=== PATIENT | female | born 1950 | race Caucasian/White ===

== ENCOUNTER 2017-05-06 09:00 | Day surgery (SDC) | payer MEDICARE, BC ==
[~2017-05-06 09:00] MED LIST: Lactated Ringers 1,000 ML IV SCH
[2017-05-06] MEDS ORDERED: fentaNYL 100 MCG/2 ML SDV ONE (10:03)
[2017-05-06] MEDS ORDERED: Propofol 200 MG/20 ML SDV ONE (10:03)
[2017-05-06 10:55] VITALS: BP 115/64
--- NOTE | 2017-05-06 14:50 | OR ---
PREOPERATIVE DIAGNOSIS: History of previous colon cancer, which was carcinoma in situ, back in 1995. Last colonoscopy was 02/2011. The patient reports she does have history of hemorrhoids as well. POSTOPERATIVE DIAGNOSES: 1. A 5 mm polyp at 60 cm (right colon), removed with cold snare and then cautery to the base. 2. Redundant colon. 3. Mild hemorrhoids, not acutely inflamed. 4. Minimal scattered diverticulosis. PROCEDURE: Colonoscopy with polypectomy x1 using cold snare and then base cauterizing using the tip of the snare. ANESTHESIA: Monitored anesthesia care. BOWEL PREP: Good. DESCRIPTION OF PROCEDURE: Johana is a 66-year-old female who was brought to the endoscopy suite after discussing risks and benefits of the procedure. Informed consent was obtained for conscious sedation and colonoscopy with or without biopsy and/or polypectomy. We also discussed possibility of missed lesions. Pre-procedure exam was unremarkable. IV, oxygen, and monitors were placed. The patient was placed in the left lateral decubitus position. Sedation was administered and a digital rectal exam was performed and unremarkable except for some mild external hemorrhoidal skin tags, not acutely inflamed. Colonoscope was passed into the rectum and slowly advanced all the way to the cecum. The patient did have redundant colon, was somewhat tortuous. Cecum was viewed and photographed. The colonoscope was slowly withdrawn and the mucosa was closed observed in a direct circumferential manner. The ascending colon was remarkable for a 5 mm polyp at 60 cm from the anal verge. This was photographed and removed with cold snare. The base of this did bleed a little bit. The tip of the snare was used to cauterize the base. The transverse colon was unremarkable. The descending colon was unremarkable. The sigmoid colon was unremarkable. There was some minimal diffuse scattered diverticulosis. Retroflexion was performed. Rectal mucosa revealed some mild hemorrhoids, not acutely inflamed. Scope was removed. The patient tolerated the procedure well. The patient was monitored until that baseline status. Discharge instructions were reviewed and the patient was discharged in good condition. COMPLICATIONS: None. TOTAL TIME: 18 minutes. ESTIMATED BLOOD LOSS: Less than 1 mL. RECOMMENDATIONS/FOLLOWUP: We will await results of path report to determine ideal followup interval. I would like to kindly thank Dr. Gabo Pulliam for this referral. DMB: 05/06/2017 10:46:54 MODL: 05/06/2017 14:38:46 /[id number]
== END 2017-05-06 12:00 | disposition home or self-care (01) ==
LOC: VM.SDS 09:00
PROVIDERS: ATTEND Family Medicine
DX: Z12.11 Encounter for screening for malignant neoplasm of colon (principal); D12.6 Benign neoplasm of colon, unspecified; K57.30 Diverticulosis of large intestine without perforation or abscess without bleeding; K64.4 Residual hemorrhoidal skin tags; I10 Essential (primary) hypertension; E78.5 Hyperlipidemia, unspecified; Z88.2 Allergy status to sulfonamides; Z88.8 Allergy status to other drugs, medicaments and biological substances; Z91.040 Latex allergy status; Z79.899 Other long term (current) drug therapy; Z90.710 Acquired absence of both cervix and uterus; Z90.49 Acquired absence of other specified parts of digestive tract
CPT/HCPCS: 45385; 88305; J2704; J3010; J7120

== ENCOUNTER 2020-11-08 06:19 | Day surgery (SDC) | payer MEDICARE, OTHER ==
[2020-11-08] MEDS ORDERED: Bupivacaine 0.25%/EPINEPHrine 1:200,000 30 ML SDV ONE (07:29)
[2020-11-08] MEDS ORDERED: Bupivacaine 0.25%/EPINEPHrine 1:200,000 30 ML SDV INJECT ONE ×2 (07:53)
[2020-11-08 08:43] VITALS: BP 114/67; PULSE 67
--- NOTE | 2020-11-08 11:47 | OR ---
PREOPERATIVE DIAGNOSIS: Right axillary epidermal cyst. POSTOPERATIVE DIAGNOSIS: Right axillary epidermal cyst. PROCEDURE PERFORMED: Excision of right axillary epidermal cyst, specimen size 3 cm, complex closure requiring subcutaneous skin flaps. ANESTHESIA: Local. COMPLICATIONS: None. BLOOD LOSS: Minimal. FINDINGS: The cyst was significantly smaller since I performed incision and drainage about 2 weeks ago. There was a quite a bit of scar tissue in the subcutaneous fat due to her prior infection. INDICATION FOR PROCEDURE: Johana Arredondo is a 70-year-old female who has had an infected epidermal cyst in her right axilla. It has been causing her quite a bit of pain. I previously performed incision and drainage. She was brought to the operating room today for excision. I felt that we would not quite be able to do this in the clinic adequately. DETAILS OF PROCEDURE: Informed consent was obtained. The patient was brought to the operating room and placed supine on the operating table. She was prepped and draped in the usual fashion. I injected local anesthetic. Elliptical incision was then made around the cyst and carried down sharply to the subcutaneous fat. There was some scar tissue here, but we did not rupture the cyst during the course of our dissection. We then irrigated the wound and I created subcutaneous skin flaps sharply to take tension off the wound. This was closed with 3-0 Vicryl deep dermal sutures and a running 4-0 Vicryl subcuticular stitch. Wound was dressed with Dermabond. The patient tolerated the procedure well. RKM: 11/08/2020 08:18:59 MODL: 11/08/2020 11:05:53 /[id number]
== END 2020-11-08 08:55 | disposition home or self-care (01) ==
LOC: VM.SDS 06:19
PROVIDERS: ATTEND Student in an Organized Health Care Education/Training Program
DX: L72.0 Epidermal cyst (principal); L90.5 Scar conditions and fibrosis of skin; E78.5 Hyperlipidemia, unspecified; I10 Essential (primary) hypertension; N76.0 Acute vaginitis; Z90.49 Acquired absence of other specified parts of digestive tract; Z98.890 Other specified postprocedural states; Z79.899 Other long term (current) drug therapy; Z88.2 Allergy status to sulfonamides; Z88.8 Allergy status to other drugs, medicaments and biological substances; Z91.040 Latex allergy status
CPT/HCPCS: 88304

== ENCOUNTER 2021-10-21 15:36 | Emergency (ER) | payer MEDICARE, OTHER ==
[2021-10-21 16:12] VITALS: BP 101/64; PULSE 94
[2021-10-21 16:45] LABS: ANION GAP 13.6 mmol/L (5-15)
[2021-10-21] MEDS: Sodium Chloride 0.9% 500 ML IV ONE (16:55)
[2021-10-21] MEDS: Iopamidol 612 MG/ML 100 ML Bottle IVPUSH ONE (17:15)
[2021-10-21] MEDS: methylPREDNISolone Sodium Succinate 125 MG/2 ML SDV IVPUSH ONE (18:36)
[2021-10-21] MEDS: Take Home: metroNIDAZOLE 500 MG Tab, 4 Tab Pack PO ONE (18:36)
== END 2021-10-21 18:37 | disposition home or self-care (01) ==
LOC: VM.ED 15:36
DX: K51.00 Ulcerative (chronic) pancolitis without complications (principal); Z91.040 Latex allergy status; Z88.2 Allergy status to sulfonamides; Z88.8 Allergy status to other drugs, medicaments and biological substances
CPT/HCPCS: 36415; 74177; 80053; 81001; 82150; 83690; 85025; 86140; 87045; 87046; 87493; 96374; 99284; 99284-25; A9270-GY; J2930; J7030; Q9967

== ENCOUNTER 2021-12-11 08:14 | Day surgery (SDC) | payer MEDICARE, OTHER ==
[2021-12-11] MEDS ORDERED: fentaNYL 100 MCG/2 ML SDV ONE (09:00)
[2021-12-11] MEDS ORDERED: Propofol 200 MG/20 ML SDV ONE ×3 (09:01→10:29)
[2021-12-11 11:33] VITALS: BP 108/56; PULSE 50
== END 2021-12-11 12:05 | disposition home or self-care (01) ==
LOC: VM.SDS 08:14
PROVIDERS: ATTEND Family Medicine
DX: K51.00 Ulcerative (chronic) pancolitis without complications (principal); K57.30 Diverticulosis of large intestine without perforation or abscess without bleeding; K56.2 Volvulus; I10 Essential (primary) hypertension; E78.5 Hyperlipidemia, unspecified; Z87.19 Personal history of other diseases of the digestive system; Z86.010 Personal history of colon polyps; Z98.890 Other specified postprocedural states
CPT/HCPCS: 00811; 88305; J2704; J3010; J7120

== ENCOUNTER 2022-06-19 09:13 | Emergency (ER) | payer MEDICARE, OTHER ==
[2022-06-19 09:32] VITALS: BP 134/81; PULSE 70
[2022-06-19] MEDS ORDERED: Acetaminophen 325 MG Tab PO ONE (09:58)
[2022-06-19] MEDS ORDERED: Ondansetron 4 MG Tab.DIS PO ONE (09:58)
[2022-06-19 10:14] LABS: ANION GAP 12.2 mmol/L (5-15); CHLORIDE,CL 99 mmol/L (98-107); ESTIMATED GFR 48 mL/min (>=60); SODIUM,NA 137 mmol/L (136-145)
[2022-06-19] MEDS ORDERED: Lactated Ringers 1,000 ML IV ONE (10:28)
== END 2022-06-19 11:20 | disposition home or self-care (01) ==
LOC: VM.ED 09:13
DX: K52.9 Noninfective gastroenteritis and colitis, unspecified (principal); E78.00 Pure hypercholesterolemia, unspecified; I10 Essential (primary) hypertension; Z79.899 Other long term (current) drug therapy; Z88.2 Allergy status to sulfonamides; Z88.8 Allergy status to other drugs, medicaments and biological substances
CPT/HCPCS: 36415; 80053; 81001; 82150; 83690; 85025; 86140; 96360; 99283-25; A9270-GY; J7120

== ENCOUNTER 2022-06-21 17:16 | Emergency (ER) | payer MEDICARE, OTHER ==
[2022-06-21 17:44] VITALS: BP 141/79; PULSE 67
[2022-06-21 18:12] LABS: CHLORIDE,CL 100 mmol/L (98-107); SODIUM,NA 137 mmol/L (136-145)
[2022-06-21 18:17] LABS: ANION GAP 12.3 mmol/L (5-15); ESTIMATED GFR 53 mL/min (>=60)
[2022-06-21] MEDS ORDERED: Iopamidol 612 MG/ML 100 ML Bottle IVPUSH ONE (18:33)
[2022-06-21] MEDS ORDERED: Take Home: Ondansetron 4 MG Tab.DIS, 5 Tab Pack PO ONE (19:44)
[2022-06-21] MEDS ORDERED: Pantoprazole 40 MG Tab.CR PO ONE (19:44)
[2022-06-21] MEDS ORDERED: Sucralfate 1 GM Tab PO ONE (19:44)
== END 2022-06-21 20:00 | disposition home or self-care (01) ==
LOC: VM.ED 17:16
DX: K29.70 Gastritis, unspecified, without bleeding (principal); E78.00 Pure hypercholesterolemia, unspecified; I10 Essential (primary) hypertension; Z88.1 Allergy status to other antibiotic agents; Z91.040 Latex allergy status; Z88.2 Allergy status to sulfonamides; Z79.899 Other long term (current) drug therapy
CPT/HCPCS: 36415; 74177; 80053; 81001; 82150; 83690; 85025; 86140; 99284; A9270-GY; Q0162; Q9967

== ENCOUNTER 2022-06-22 08:49 | Emergency (ER) | payer MEDICARE, OTHER ==
[2022-06-22] MEDS: GI Cocktail Oral Solution 30 ML PO ONE (09:20)
[2022-06-22] MEDS: Sodium Chloride 0.9% 1,000 ML IV ONE (09:20)
[2022-06-22 09:32] VITALS: BP 151/70; PULSE 61
== END 2022-06-22 10:24 | disposition home or self-care (01) ==
LOC: VM.ED 08:49
DX: K29.70 Gastritis, unspecified, without bleeding (principal); I10 Essential (primary) hypertension; Z88.1 Allergy status to other antibiotic agents; Z91.040 Latex allergy status; Z88.8 Allergy status to other drugs, medicaments and biological substances; Z88.2 Allergy status to sulfonamides; Z79.899 Other long term (current) drug therapy
CPT/HCPCS: 96360; 99283; A9270; J7030

== ENCOUNTER 2022-06-28 19:23 | Emergency (ER) | payer MEDICARE, OTHER ==
[2022-06-28] MEDS ORDERED: Sucralfate 1 GM Tab PO ONE (19:51)
[2022-06-28] MEDS: Take Home: Ondansetron 4 MG Tab.DIS, 5 Tab Pack PO ONE ×2 (19:56→19:58)
[2022-06-28] MEDS ORDERED: Sucralfate 1 GM Tab ONE (19:58)
[2022-06-28 21:05] VITALS: BP 129/89; PULSE 80
== END 2022-06-28 20:05 | disposition home or self-care (01) ==
LOC: VM.ED 19:23
DX: K29.70 Gastritis, unspecified, without bleeding (principal); I10 Essential (primary) hypertension; Z88.1 Allergy status to other antibiotic agents; Z91.040 Latex allergy status; Z88.8 Allergy status to other drugs, medicaments and biological substances; Z88.2 Allergy status to sulfonamides; Z79.899 Other long term (current) drug therapy
CPT/HCPCS: 99283; 99284; A9270-GY; Q0162